=== PATIENT | male | born 1955 | race Hispanic/Latino ===

== ENCOUNTER 2017-09-14 08:09 | Day surgery (SDC) | payer OTHER, MEDICARE ==
[~2017-09-14] VITALS: Ht 170.2 cm; Wt 90.4 kg
[~2017-09-14 08:09] MED LIST: CLON2TAB21 PO; QUET300T44 PO; SODIUM CHLORIDE 0.9% 1000ML 1,000 ML IV ONE; TRAM50TA4 PO
[2017-09-14 08:18] VITALS: BP 142/87
[2017-09-14] MEDS ORDERED: PROPOFOL 10 MG/ML 20ML VIAL IV ONE ×2 (10:08→10:29)
[2017-09-14] MEDS ORDERED: FENTANYL CITRATE PF 50 MCG/1 ML 2ML VIAL ONE (10:08)
[2017-09-14 10:41] VITALS: BP 125/82
== END 2017-09-14 10:10 | disposition home or self-care (01) ==
LOC: SUH 08:09 → DAH 08:09 → SUH 10:10
PROVIDERS: ATTEND Internal Medicine Gastroenterology
DX: Z09 Encounter for follow-up examination after completed treatment for conditions other than malignant neoplasm (principal); D12.2 Benign neoplasm of ascending colon; D12.0 Benign neoplasm of cecum; D12.4 Benign neoplasm of descending colon; D12.5 Benign neoplasm of sigmoid colon; D12.3 Benign neoplasm of transverse colon; K57.30 Diverticulosis of large intestine without perforation or abscess without bleeding; K21.9 Gastro-esophageal reflux disease without esophagitis; I10 Essential (primary) hypertension; G47.33 Obstructive sleep apnea (adult) (pediatric); D64.89 Other specified anemias; M19.90 Unspecified osteoarthritis, unspecified site; M10.9 Gout, unspecified; Z86.010 Personal history of colon polyps; Z98.890 Other specified postprocedural states; Z90.3 Acquired absence of stomach [part of]; Z79.899 Other long term (current) drug therapy
CPT/HCPCS: 45380; 45381; 45385; 88305; A4606; J2704 ×2; J3010; J7030